=== PATIENT | male | born 1960 | race Caucasian/White ===

== ENCOUNTER 2021-08-02 09:21 | Emergency (ER) | payer OTHER ==
[~2021-08-02] VITALS: Ht 167.6 cm; Wt 77.8 kg
[2021-08-02 11:26] VITALS: BP 145/83
== END 2021-08-02 11:30 | disposition home or self-care (01) ==
LOC: M ED 09:21
DX: N40.1 Benign prostatic hyperplasia with lower urinary tract symptoms (principal); R33.9 Retention of urine, unspecified; R31.0 Gross hematuria; F12.10 Cannabis abuse, uncomplicated